=== PATIENT | female | born 1985 | race Native Hawaiian/Other Pacific Islander ===

== ENCOUNTER 2017-10-28 19:19 | Emergency (ER) | payer OTHER ==
[2017-10-28 20:04] VITALS: BP 124/80; PULSE 76; RESP 18; TEMP 98.9; O2SAT 100
--- NOTE | 2017-10-28 20:07 | ED PDOC ---
Upper Extremity Pain/Injury Time Seen by Provider: 10/28/17 20:03 Chief Complaint (Nursing): Finger,Hand,&Wrist Chief Complaint (Provider): finger pain History Per: Patient Additional Complaint(s): 31 year old right hand dominant female presents with pain to right thumb pain for one week. Patient developed a nail infection after having acrylic nails placed. She was seen by primary doctor a few days ago and started on Keflex but has not noticed improvement of infection. She still has purulent discharge from nailbed. Denies fever or chills. PMD: Dr Irene Past Medical History Reviewed: Historical Data, Nursing Documentation, Vital Signs Vital Signs: Last Vital Signs Temp 98.9 F 10/28/17 20:02 Pulse 76 10/28/17 20:02 Resp 18 10/28/17 20:02 BP 124/80 10/28/17 20:02 Pulse Ox 100 10/28/17 20:02 - Medical History PMH: No Chronic Diseases - Surgical History Surgical History: No Surg Hx - Family History Family History: States: No Known Family Hx - Living Arrangements Living Arrangements: With Family - Social History Current smoker - smoking cessation education provided: No Alcohol: None Drugs: Denies - Home Medications Home Medications: Ambulatory Orders Medication Instructions Recorded Clindamycin [Cleocin] 300 mg PO QID #28 cap 10/28/17 - Allergies Allergies/Adverse Reactions: Allergies Allergy/AdvReac Type Severity Reaction Status Date / Time No Known Allergies Allergy Verified 10/28/17 20:02 Review of Systems ROS Statement: Except As Marked, All Systems Reviewed And Found Negative Constitutional: Negative for: Fever Musculoskeletal: Positive for: Other (right thumb pain) Physical Exam - Reviewed Nursing Documentation Reviewed: Yes Vital Signs Reviewed: Yes - Physical Exam Appears: Positive for: Well, Non-toxic, No Acute Distress Head Exam: Positive for: ATRAUMATIC, NORMAL INSPECTION, NORMOCEPHALIC Skin: Positive for: Normal Color Eye Exam: Positive for: Normal appearance Extremity: Positive for: Other (indurated paronychia to right thumb, no diffuse cellulitis). Negative for: Deformity Neurologic/Psych: Positive for: Alert, Oriented (x3) - Laboratory Results Urine POC: Negative - ECG O2 Sat by Pulse Oximetry: 100 (RA) Pulse Ox Interpretation: Normal Medical Decision Making Medical Decision Making: Time: 2002 Impression: 31 year old female with paronychia Patient was advised to stop taking Keflex and was given prescription for clindamycin instead. Initial dose given in ED. Patient was referred to hand specialist on-call for follow up. Scribe Attestation: Documented by Peng Ames, acting as a scribe for Bridgette Gonzalez PA-C. Provider Scribe Attestation: All medical record entries made by the Scribe were at my direction and personally dictated by me. I have reviewed the chart and agree that the record accurately reflects my personal performance of the history, physical exam, medical decision making, and the department course for this patient. I have also personally directed, reviewed, and agree with the discharge instructions and disposition. Disposition - Clinical Impression Clinical Impression: Paronychia - Patient ED Disposition Is Patient to be Admitted: No Counseled Patient/Family Regarding: Diagnosis, Need For Followup, Rx Given - Disposition Referrals: Real Cheatham MD [Medical Doctor] - Disposition: Routine/Home Disposition Time: 21:01 Condition: STABLE Additional Instructions: Soak affected area in warm water with Epsom salts. Stop taking current antibiotics and take new prescription as directed. Advil for pain as needed. Follow-up with hand specialist for any persistent symptoms. Prescriptions: Clindamycin [Cleocin] 300 mg PO QID #28 cap Instructions: Paronychia (DC) Forms: [facility] ([place])
== END 2017-10-28 21:04 | disposition home or self-care (01) ==
LOC: H.ER 19:19
DX: L03.011 Cellulitis of right finger (principal)